=== PATIENT | female | born 1985 | race Caucasian/White ===

== ENCOUNTER 2019-08-12 15:49 | Emergency (ER) | payer SELFPAY ==
--- NOTE | 2019-08-12 16:21 | EDM.PDOC ---
ED HPI GENERAL MEDICAL PROBLEM - General Chief Complaint: Lower Extremity Injury/Pain Stated Complaint: POSSIBLE BROKEN TOE OR FOOT Time Seen by Provider: 08/12/19 15:58 Source of Information: Reports: Patient, RN Notes Reviewed History Limitations: Reports: No Limitations - History of Present Illness INITIAL COMMENTS - FREE TEXT/NARRATIVE: Patient is a 33-year-old female who presents to the ED for the evaluation of right foot/toe pain. The patient notes that shortly prior to arrival she was at the gym, using the elliptical machine, and was trying to slow this down and get off. She notes that the pedals kept going faster however and her foot slipped off of the pedal and slammed her right foot/toe into the front of the pedal. She developed instant pain into her right medial foot and big toe after this. She notes that the toe is slightly twisted, and it appears to twist laterally, she notes this was not like this before the injury. She does note some numbness as well to the distal toe, her pedal pulses are strong however. Patient did not take any sort of pain medications prior to coming to the ER. She denies any chance of as she has had a tubal ligation. She notes that walking does hurt quite a bit, but when she rests the pain is a 1 out of 10. Right Toe-[place] Pain Score (Numeric/FACES): 2 - Related Data Allergies Allergy/AdvReac Type Severity Reaction Status Date / Time No Known Allergies Allergy Verified 08/12/19 16:09 Past Medical History Cardiovascular History: Reports: Other (See Below) (states that she used to be on medication for rapid heart rate when she was a teenager) - Past Surgical History GI Surgical History: Reports: Hernia, Inguinal Female Surgical History: Reports: Tubal Ligation Other Female Surgeries/Procedures: 10 years ago Social & Family History - Tobacco Use Smoking Status *Q: Never Smoker - Caffeine Use Caffeine Use: Reports: Coffee - Recreational Drug Use Recreational Drug Use: No Review of Systems - Review of Systems Review Of Systems: Comprehensive ROS is negative, except as noted in HPI. Musculoskeletal: Reports: Foot Pain (R medial midfoot and big toe) Skin: Reports: Erythema (to R great toe). Denies: Bruising ED EXAM, GENERAL - Physical Exam Exam: See Below Exam Limited By: No Limitations General Appearance: Alert, WD/WN, No Apparent Distress Throat/Mouth: Normal Inspection, Normal Lips, Normal Teeth, Normal Gums, Normal Oropharynx, Normal Voice, No Airway Compromise Head: Atraumatic, Normocephalic Respiratory/Chest: No Respiratory Distress, Lungs Clear, Normal Breath Sounds, No Accessory Muscle Use, Chest Non-Tender Cardiovascular: Normal Peripheral Pulses, Regular Rate, Rhythm, No Edema, No Murmur Peripheral Pulses: 3+: Radial (L), Radial (R), Dorsalis Pedis (L), Dorsalis Pedis (R) Extremities: Normal Inspection, Normal Capillary Refill, Limited Range of Motion (of R great toe d/t pain), Other (Patient's right great toe appears to be somewhat twisted laterally.) Neurological: Alert, Oriented, Normal Cognition, Sensory/Motor Deficit (Patient states she is mildly numb along the medial portion of her right great toe, she can start feeling a sharp sensation at about the base of the toe, but states she does not feel much for light or sharp touch distal to that.) Psychiatric: Normal Affect, Normal Mood Skin Exam: Warm, Dry, Intact, Normal Color, No Rash Course - Vital Signs Last Recorded V/S: Last Vital Signs Temp 97.6 F 08/12/19 16:02 Pulse 75 08/12/19 16:02 Resp 16 08/12/19 16:02 BP 120/79 08/12/19 16:02 Pulse Ox 100 08/12/19 16:02 - Orders/Labs/Meds Orders: Active Orders 24 hr Category Date Time Status Acetaminophen/HYDROcodone [[place] 325-5 MG] Med 08/12/19 16:49 Once 2 tab PO ONETIME ONE - Re-Assessments/Exams Free Text/Narrative Re-Assessment/Exam: 08/12/19 16:28 Patient presents to the ED for the evaluation of the right foot/toe injury. The right great toe does appear to be somewhat laterally twisted. I did order a foot x-ray for further evaluation, she states that she is not in a lot of pain right now and was declining any sort of pain medication at this time. 08/12/19 16:49 X-ray is done, and demonstrates a small fracture off the lateral base of the distal phalange E of the right great toe. There is no other acute fracture or abnormalities noted within the foot itself. This was reviewed by myself and Dr. Ibanez. Official radiology read reflects the same. Patient was not requesting anything for pain med again. The toe will be jesse taped to the second digit, she will be given 2 tablets of [place] 5/325 to take home in case she should develop pain later, otherwise she states she will take ibuprofen and work through it. Departure - Departure Time of Disposition: 16:51 Disposition: Home, Self-Care 01 Condition: Fair Clinical Impression: Closed fracture of one or more phalanges of right foot Qualifiers: Encounter type: initial encounter Toe: great toe Phalanx: distal Fracture alignment: nondisplaced Qualified Code(s): S92.424A - Nondisplaced fracture of distal phalanx of right great toe, initial encounter for closed fracture - Discharge Information *PRESCRIPTION DRUG MONITORING PROGRAM REVIEWED*: No *COPY OF PRESCRIPTION DRUG MONITORING REPORT IN PATIENT YUNI: No Instructions: Toe Fracture, [place] Referrals: Becki Darby MD [Primary Care Provider] - Forms: ED Department Discharge Additional Instructions: You have been evaluated in the ED for your right foot injury. Your x-ray demonstrated that you have fractured the base of your right great toe , this was a corner fracture and should heal fairly nicely. Management of this will be to jesse tape to the next toe, the toe should go back into alignment once the swelling goes down. Please use ice as tolerated to the affected area. Please try to elevate the affected area to relieve swelling. You may take Tylenol 500 mg or ibuprofen 600mg q6 hrs for pain relief. Please do so until you have a tolerable level of pain with activity. Do not exceed 4000mg Tylenol or 3200mg ibuprofen in a 24 hour time period. You were given 2 tablets of hydrocodone/acetaminophen 5/325, please take 1 tab every 6 hours as needed for further pain relief. Please return to ED if your symptoms should change or worsen. Sepsis Event Note - Evaluation Sepsis Screening Result: No Definite Risk - Focused Exam Vital Signs: Vital Signs Temp Pulse Resp BP Pulse Ox 08/12/19 16:02 97.6 F 75 16 120/79 100 Date Exam was Performed: 08/12/19 Time Exam was Performed: 16:49 - My Orders Last 24 Hours: My Active Orders 08/12/19 16:49 Acetaminophen/HYDROcodone [[place] 325-5 MG] 2 tab PO ONETIME ONE - Assessment/Plan Last 24 Hours: My Active Orders 08/12/19 16:49 Acetaminophen/HYDROcodone [[place] 325-5 MG] 2 tab PO ONETIME ONE
--- NOTE | 2019-08-12 16:43 | CR ---
Right foot: 4 views right foot were obtained. Comparison: No previous foot exam. Corner fracture is identified involving the base of the distal phalanx of the first digit. No additional fracture or other bony abnormality is appreciated. Impression: 1. Fracture within the first digit as noted above. Diagnostic code #3 Study was dictated in [place] Standard Time
[2019-08-12] MEDS ORDERED: Acetaminophen/HYDROcodone 325-5 MG Tab PO ONE (16:49)
== END 2019-08-12 17:00 | disposition home or self-care (01) ==
LOC: JD.ED 15:49
DX: S92.424A Nondisplaced fracture of distal phalanx of right great toe, initial encounter for closed fracture (principal); Z98.51 Tubal ligation status; W18.41XA Slipping, tripping and stumbling without falling due to stepping on object, initial encounter; X50.1XXA Overexertion from prolonged static or awkward postures, initial encounter
CPT/HCPCS: 73630; 99283; A9270; 99282

== ENCOUNTER 2021-01-05 10:45 | Emergency (ER) | payer SELFPAY ==
[2021-01-05] MEDS ORDERED: Cyclobenzaprine 10 MG Tab PO ONE (11:25)
[2021-01-05] MEDS ORDERED: Ketorolac 60 MG/2 ML SDV IM ONE (11:25)
--- NOTE | 2021-01-05 11:47 | EDM.PDOC ---
ED HPI GENERAL MEDICAL PROBLEM - General Chief Complaint: Neck Problem Stated Complaint: NECK PAIN Time Seen by Provider: 01/05/21 11:05 Source of Information: Reports: Patient, RN Notes Reviewed History Limitations: Reports: No Limitations - History of Present Illness INITIAL COMMENTS - FREE TEXT/NARRATIVE: Patient is a 35-year-old female presenting to the emergency department with complaints of neck pain and spasm. Reports 4 days ago she was "sparring "and took a hit to the head. She felt an immediate sharp pain in her neck. Upon waking this morning, her neck was increasingly sore. States she try to do some stretching exercises and her "back locked up ". Describes muscle spasms. Pain is relieved by tilting her head towards the left and raising her left arm. Rep orts some paresthesia in her left arm as well, however she is unsure if this related to the injury or having to keep her arm held above her head. She does report a history of similar neck injury in the past. She took Motrin around 7 AM this morning as well as 50 mg of morphine which she had leftover from previous injury. She did go to the chiropractor, however they were unable to adjust her due to her muscle spasms. Left Neck Pain Score (Numeric/FACES): 3 - Related Data Allergies Allergy/AdvReac Type Severity Reaction Status Date / Time No Known Allergies Allergy Verified 01/05/21 11:04 Home Meds: Home Meds Cyclobenzaprine [Flexeril] 10 mg PO TID PRN #10 tab 01/05/21 [Rx] Naproxen [Naprosyn] 500 mg PO Q12HR 5 Days #10 tab 01/05/21 [Rx] Past Medical History Cardiovascular History: Reports: Other (See Below) Other Cardiovascular History: issues with racing heart in teenage yrs, no problems since. Respiratory History: Reports: Asthma Other Respiratory History: seasonal Gastrointestinal History: Reports: PUD Genitourinary History: Reports: Other (See Below) Other Genitourinary History: overactive bladder in childhood. 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: Musculoskeletal History: Reports: Fracture Neurological History: Reports: Migraines Oncologic (Cancer) History: Reports: Other (See Below) Other Oncologic History: pre-cancerous cervical lesion "burned off." - Infectious Disease History Infectious Disease History: Reports: Chicken Pox - Past Surgical History GI Surgical History: Reports: Hernia, Inguinal Female Surgical History: Reports: Tubal Ligation Other Female Surgeries/Procedures: 10 years ago Social & Family History - Tobacco Use Tobacco Use Status *Q: Never Tobacco User Second Hand Smoke Exposure: No - Caffeine Use Caffeine Use: Reports: Coffee - Recreational Drug Use Recreational Drug Use: No ED ROS GENERAL - Review of Systems Review Of Systems: See Below Constitutional: Reports: No Symptoms HEENT: Reports: No Symptoms Respiratory: Reports: No Symptoms Cardiovascular: Reports: No Symptoms Endocrine: Reports: No Symptoms GI/Abdominal: Reports: No Symptoms : Reports: No Symptoms Musculoskeletal: Reports: Neck Pain, Muscle Pain, Muscle Stiffness Skin: Reports: No Symptoms Neurological: Reports: Numbness (left arm) Psychiatric: Reports: No Symptoms Hematologic/Lymphatic: Reports: No Symptoms Immunologic: Reports: No Symptoms ED EXAM, UPPER BACK/NECK PAIN - Physical Exam Exam: See Below Exam Limited By: No Limitations General Appearance: Alert, WD/WN, No Apparent Distress Neck Exam: Normal Alignment, Normal Inspection, Muscle Spasm (left lateral), Stiff Neck, Tender Lateral (left). No: Tender Midline Cardiovascular/Respiratory: Regular Rate, Rhythm, No M/R/G, Normal Peripheral Pulses, No JVD, Normal Breath Sounds, No Respiratory Distress Neurologic: stage builder II-XII nml As Tested, No Motor/Sensory Deficits, Alert, Normal Mood/Affect, Oriented x 3 Psychiatric: Normal Affect, Normal Mood Skin Exam: Normal Color, Warm/Dry Course - Vital Signs Last Recorded V/S: Last Vital Signs Temp 98.7 F 01/05/21 11:00 Pulse 65 01/05/21 11:00 Resp 16 01/05/21 11:00 BP 122/64 01/05/21 11:00 Pulse Ox 100 01/05/21 11:00 - Orders/Labs/Meds Orders: Active Orders 24 hr Category Date Time Status Cervical Spine 2V or 3V [CR] Stat Exams 01/05/21 12:28 Taken Meds: Medications Discontinued Medications Generic Name Dose Route Start Last Admin Trade Name Freq PRN Reason Stop Dose Admin Cyclobenzaprine HCl 10 mg 01/05/21 11:25 01/05/21 11:50 Cyclobenzaprine 10 Mg Tab PO 01/05/21 11:26 10 mg ONETIME ONE Administration Ketorolac Tromethamine 60 mg 01/05/21 11:25 01/05/21 11:49 Ketorolac 60 Mg/2 Ml Sdv IM 01/05/21 11:26 60 mg ONETIME ONE Administration - Re-Assessments/Exams Free Text/Narrative Re-Assessment/Exam: Patient is a 35-year-old female presenting to the emergency department with complaints of left lateral neck pain. She reports that she must keep her left arm above her head and her head tilted to the side in order to have any degree of comfort. She is unable to put her arm down without significant pain. I have ordered Toradol 60 mg IM and Flexeril 10 mg p.o. Once he is to get medications begin to take effect, I will examine her further. 01/05/21 12:36 Patient has had significant relief after the medications given. She is able to put her arm down and move her head from side to side with minimal discomfort. On exam, she does have some mild left lateral neck tenderness which extends to the trapezius muscle. She has no midline tenderness. There is no step-offs or deformities of the spine noted. I have ordered C-spine x-rays. 01/05/21 13:00 X-ray of the C-spine reviewed by myself and Dr. Hernandez shows no acute abnormalities. Official radiologist read is pending. Patient is feeling much better after the medications given. I will discharge her home with a prescription for Naprosyn and Flexeril. Discharge instructions documented. Departure - Departure Time of Disposition: 13:01 Disposition: Home, Self-Care 01 Condition: Good Clinical Impression: Cervical strain Qualifiers: Encounter type: initial encounter Qualified Code(s): S16.1XXA - Strain of muscle, fascia and tendon at neck level, initial encounter - Discharge Information *PRESCRIPTION DRUG MONITORING PROGRAM REVIEWED*: No *COPY OF PRESCRIPTION DRUG MONITORING REPORT IN PATIENT YUNI: No Prescriptions: Cyclobenzaprine [Flexeril] 10 mg PO TID PRN #10 tab PRN Reason: Muscle Spasm Naproxen [Naprosyn] 500 mg PO Q12HR 5 Days #10 tab Instructions: Cervical Strain and Sprain Rehab-SportsMed Referrals: Galo Youngblood DC [Primary Care Provider] - Forms: ED Department Discharge Additional Instructions: You were seen in the emergency department today for neck pain and spasm. While in the ER, you received an injection of Toradol as well as Flexeril. This did significantly improve your discomfort. X-rays working pleated of your cervical spine and showed no abnormalities. You are likely suffering from a cervical strain. You been started on Naprosyn which is an NSAID to reduce inflammation and treat the pain as well as Flexeril which is a muscle relaxer. Take these medications as prescribed. Recommend intermittent heat to the area of discomfort. You should see gradual improvement over the next few days. If you should experience any new or worsening symptoms, please do not hesitate to return to the emergency department for reevaluation. Sepsis Event Note (ED) - Evaluation Sepsis Screening Result: No Definite Risk - Focused Exam Vital Signs: Vital Signs Temp Pulse Resp BP Pulse Ox 01/05/21 11:00 98.7 F 65 16 122/64 100 - My Orders Last 24 Hours: My Active Orders 01/05/21 12:28 Cervical Spine 2V or 3V [CR] Stat - Assessment/Plan Last 24 Hours: My Active Orders 01/05/21 12:28 Cervical Spine 2V or 3V [CR] Stat
--- NOTE | 2021-01-06 09:48 | CR ---
Cervical spine: AP, lateral and odontoid views of the cervical spine were obtained. Comparison: No prior cervical spine imaging is available. Moderate disc space narrowing is noted at C5-6. Other disc spaces are maintained within the cervical spine. Vertebral body heights are maintained. No discrete subluxation or fracture is seen. Impression: 1. Moderate disc space narrowing at C5-6. 2. No additional abnormality is identified on 3 view cervical spine study. Diagnostic code #2
== END 2021-01-05 13:13 | disposition home or self-care (01) ==
LOC: JD.ED 10:45
DX: S16.1XXA Strain of muscle, fascia and tendon at neck level, initial encounter (principal); J45.909 Unspecified asthma, uncomplicated; W22.8XXA Striking against or struck by other objects, initial encounter
CPT/HCPCS: 72040; 96372; 99283; A9270; J1885